=== PATIENT | female | born 1960 | race American Indian/Alaskan Native ===

== ENCOUNTER 2016-08-22 21:46 | Emergency (ER) | payer MEDICAID ==
[2016-08-22] MEDS ORDERED: Aspirin 325 mg EC Tablets PO STA (23:12)
[2016-08-22] MEDS ORDERED: Aspirin 325 mg EC Tablets PO ONE (23:31)
[2016-08-22 23:36] LABS: BASO # 0.1 K/uL (0.0-0.2); BASO % 0.7 % (0.0-2.0); EOS # 0.1 K/uL (0.0-0.7); EOS % 1.6 % (0.0-4.0); HEMATOCRIT 37.8 % (34.0-47.0); LYMPH # 2.6 K/uL (1.0-4.3); LYMPH % 33.8 % (20.0-40.0); MEAN CELL VOLUME 80.4 fL (81.0-99.0); MEAN CORPUSCULAR HEMOGLOBIN 25.6 pg (27.0-31.0); MEAN CORPUSCULAR HGB CONC 31.8 g/dL (33.0-37.0); MEAN PLATELET VOLUME 9.2 fL (7.2-11.7); MONO # 0.5 K/uL (0.0-0.8); MONO % 6.6 % (0.0-10.0); NRBC % 0.1 % (0.0-2.0); WHITE BLOOD COUNT 7.6 K/uL (4.8-10.8)
[2016-08-22 23:46] LABS: CHLORIDE 99 mmol/L (98-107)
[2016-08-22 23:47] LABS: POTASSIUM 3.1 mmol/L (3.6-5.2); SODIUM 139 mmol/L (132-148)
[2016-08-22 23:49] LABS: ALB/GLOB RATIO 1.2 (1.0-2.1); ALKALINE PHOSPHATASE 107 U/L (38-126); ALT/SGPT 21 U/L (9-52); AST/SGOT 24 U/L (14-36); BILIRUBIN,TOTAL 0.7 mg/dL (0.2-1.3); BLOOD UREA NITROGEN 24 mg/dL (7-17); GFR AFRICAN-AMERICAN 57; GLUCOSE,RANDOM 114 mg/dL (65-105)
[2016-08-22 23:50] LABS: CALCIUM 8.6 mg/dl (8.6-10.4); MAGNESIUM 2.4 mg/dL (1.6-2.3)
[2016-08-23 00:06] LABS: T4 8.78 ug/dL (5.5-11.0)
[2016-08-23] MEDS ORDERED: Potassium Chloride 20 mEq ER Tab PO STA ×2 (00:20→01:17)
[2016-08-23] MEDS ORDERED: Potassium Chloride 20 mEq ER Tab PO ONE (00:24)
--- NOTE | 2016-08-23 00:34 | C.PDOC ---
Time Seen by Provider: 08/22/16 22:49 Chief Complaint (Nursing): Chest Pain History Per: Patient Onset/Duration Of Symptoms: Hrs (tonight) Current Symptoms Are (Timing): Better Severity: Moderate Quality: "Pain" Associated Symptoms: Nausea, Other (Palpitations) Modifying Factors: Other Indicated Below Alleviating Factors: None Additional History Per: Prior Records Past Medical History Reviewed: Historical Data, Nursing Documentation, Vital Signs Vital Signs: Last Vital Signs Temp 98.1 F 08/22/16 23:39 Pulse 63 08/22/16 23:39 Resp 14 08/22/16 23:39 BP 144/95 H 08/22/16 23:39 Pulse Ox 100 08/23/16 00:36 - Medical History PMH: Diabetes, HTN, Hypothyroidism Other Surgeries: Thyroidectomy Family History: States: Unknown Family Hx - Social History Hx Alcohol Use: Yes Hx Substance Use: No Review Of Systems Except As Marked, All Systems Reviewed And Found Negative. Constitutional: Negative for: Fever Cardiovascular: Positive for: Chest Pain, Palpitations Respiratory: Negative for: Shortness of Breath, Hemoptysis Gastrointestinal: Positive for: Nausea. Negative for: Vomiting, Abdominal Pain Musculoskeletal: Negative for: Neck Pain, Back Pain, Leg Pain Skin: Negative for: Rash Neurological: Negative for: Weakness, Numbness, Seizures, Altered Mental Status Physical Exam - Physical Exam Appears: Non-toxic, No Acute Distress Skin: Normal Color, Warm, Dry, No Rash Head: Atraumatic, Normacephalic Eye(s): bilateral: PERRL, EOMI Neck: Normal ROM, Supple Cardiovascular: Rhythm Regular Respiratory: Normal Breath Sounds, No Accessory Muscle Use Gastrointestinal/Abdominal: Soft, No Tenderness Back: No CVA Tenderness Extremity: Normal ROM, No Pedal Edema, No Calf Tenderness Neurological/Psych: Oriented x3, Normal Motor, Normal Sensation ED Course And Treatment - Laboratory Results Result Diagrams: 08/22/16 23:33 08/22/16 23:33 Interpretation Of Abnormal: Hypokalemia. Elevated TSH. ECG: Interpreted By Me, Viewed By Me ECG Rhythm: Sinus Rhythm, Nonspecific Changes ECG Interpretation: Abnormal Interpretation Of ECG: Q waves in lead V1-V2. No prior EKG available for comparison. Rate From EC O2 Sat by Pulse Oximetry: 100 Pulse Ox Interpretation: Normal - Radiology CXR: Interpreted by Me, Viewed By Me CXR Interpretation: Yes: No Acute Disease Progress Note: Pt requested to be admitted under Dr. Sinclair. Progress - Interventions Interventions:: Observation - Medications Administered Oral: Aspirin, Other (KCl) - Data Reviewed Data Reviewed: Lab, Diagnostic imaging, EKG, Old records - Patient Status Patient status: Partially improved - Continuity of Care Discussed patient case with:: Patient, ED Nurse, Other (Pt requested physician) Disposition Discussed With : Kirstie Sinclair Comment: He accepted pt on his service and gave admitting orders to the nurse. Doctor Will See Patient In The: Hospital Counseled Patient/Family Regarding: Studies Performed, Diagnosis - Disposition Disposition: HOSPITALIZED Disposition Time: 00:59 Condition: STABLE - Clinical Impression Clinical Impression: Chest pain, Palpitations
[2016-08-23 00:54] LABS: CARBON DIOXIDE 29 mmol/L (22-30)
[2016-08-23 07:28] VITALS: BP 153/99; PULSE 61; RESP 18; TEMP 98.1; O2SAT 99
[2016-08-23] MEDS ORDERED: Levothyroxine 50 MCG TAB PO SCH (08:00)
--- NOTE | 2016-08-23 08:56 | RAD ---
PROCEDURE: CHEST RADIOGRAPH, 1 VIEW HISTORY: chest pain COMPARISON: None available. FINDINGS: LUNGS: Clear. PLEURA: No pneumothorax or pleural fluid seen. CARDIOVASCULAR: Normal. OSSEOUS STRUCTURES: No significant abnormalities. VISUALIZED UPPER ABDOMEN: Normal. OTHER FINDINGS: None. IMPRESSION: No active disease.
[2016-08-23] MEDS ORDERED: Potassium Chloride 20 mEq ER Tab PO SCH (10:00)
--- NOTE | 2016-08-24 12:10 | CARD ---
APPROVED REPORT EKG Measurement Heart [id number] <Conclusion> Normal sinus rhythm Possible Left atrial enlargement Septal infarct, age undetermined Abnormal ECG
== END 2016-08-23 08:10 | disposition left against medical advice (07) ==
LOC: C.ER 21:46 → UNDOADMOB 08-23 00:59 → C.9E 08-23 00:59 → C.ER 08-23 08:10 → UNDODISOB 08-23 08:10
DX: R07.9 Chest pain, unspecified (principal); R00.2 Palpitations
CPT/HCPCS: 71010; 80053; 82948; 83735; 84436; 84443; 84480; 84484; 85025; 85610; 85730; G0378